=== PATIENT | male | born 1950 | race African-American/Black ===

== ENCOUNTER 2021-01-30 08:25 | Outpatient (CLI) | payer MEDICARE, MEDICAID | END 2021-01-30 08:26 | disposition home or self-care (01) | LOC: CSHWCC 08:25 | PROVIDERS: ATTEND Nurse Practitioner Family | DX: L89.314 Pressure ulcer of right buttock, stage 4 (principal); L89.011 Pressure ulcer of right elbow, stage 1; L89.626 Pressure-induced deep tissue damage of left heel; L89.896 Pressure-induced deep tissue damage of other site; I87.313 Chronic venous hypertension (idiopathic) with ulcer of bilateral lower extremity; I87.2 Venous insufficiency (chronic) (peripheral); E11.622 Type 2 diabetes mellitus with other skin ulcer; L97.312 Non-pressure chronic ulcer of right ankle with fat layer exposed; L97.812 Non-pressure chronic ulcer of other part of right lower leg with fat layer exposed; L97.822 Non-pressure chronic ulcer of other part of left lower leg with fat layer exposed; S91.309D Unspecified open wound, unspecified foot, subsequent encounter; I69.951 Hemiplegia and hemiparesis following unspecified cerebrovascular disease affecting right dominant side; I89.0 Lymphedema, not elsewhere classified; L03.115 Cellulitis of right lower limb; R60.0 Localized edema; I12.9 Hypertensive chronic kidney disease with stage 1 through stage 4 chronic kidney disease, or unspecified chronic kidney disease; N18.9 Chronic kidney disease, unspecified; B96.5 Pseudomonas (aeruginosa) (mallei) (pseudomallei) as the cause of diseases classified elsewhere; Z74.01 Bed confinement status ==

== ENCOUNTER 2021-07-30 09:24 | Outpatient (CLI) | payer MEDICARE, MEDICAID | END 2021-07-30 09:25 | disposition home or self-care (01) | LOC: CSHWCC 09:24 | PROVIDERS: ATTEND Nurse Practitioner Family | DX: I87.313 Chronic venous hypertension (idiopathic) with ulcer of bilateral lower extremity (principal); I87.2 Venous insufficiency (chronic) (peripheral); E11.622 Type 2 diabetes mellitus with other skin ulcer; L97.312 Non-pressure chronic ulcer of right ankle with fat layer exposed; L97.812 Non-pressure chronic ulcer of other part of right lower leg with fat layer exposed; L97.222 Non-pressure chronic ulcer of left calf with fat layer exposed; L03.115 Cellulitis of right lower limb; I89.0 Lymphedema, not elsewhere classified; R60.0 Localized edema; I69.951 Hemiplegia and hemiparesis following unspecified cerebrovascular disease affecting right dominant side; E11.22 Type 2 diabetes mellitus with diabetic chronic kidney disease; I12.9 Hypertensive chronic kidney disease with stage 1 through stage 4 chronic kidney disease, or unspecified chronic kidney disease; N18.9 Chronic kidney disease, unspecified; B96.5 Pseudomonas (aeruginosa) (mallei) (pseudomallei) as the cause of diseases classified elsewhere | CPT/HCPCS: 97139; G0463; 99213 ==

== ENCOUNTER 2021-09-03 09:00 | Outpatient (CLI) | payer OTHER | END 2021-09-03 09:01 | disposition home or self-care (01) | LOC: CSHWCC 09:00 | PROVIDERS: ATTEND Nurse Practitioner Family | DX: L89.314 Pressure ulcer of right buttock, stage 4 (principal) | CPT/HCPCS: 97139; G0463; 99212 ==

== ENCOUNTER 2021-09-24 09:32 | Outpatient (CLI) | payer MEDICARE, MEDICAID | END 2021-09-24 09:33 | disposition home or self-care (01) | LOC: CSHWCC 09:32 | PROVIDERS: ATTEND Nurse Practitioner Family | DX: L89.314 Pressure ulcer of right buttock, stage 4 (principal) | CPT/HCPCS: 99213; G0463 ==

== ENCOUNTER 2021-10-15 10:01 | Outpatient (CLI) | payer MEDICARE, MEDICAID | END 2021-10-15 10:02 | disposition home or self-care (01) | LOC: CSHWCC 10:01 | PROVIDERS: ATTEND Nurse Practitioner Family | DX: L89.314 Pressure ulcer of right buttock, stage 4 (principal) | CPT/HCPCS: 99212; G0463 ==

== ENCOUNTER 2021-10-29 09:51 | Outpatient (CLI) | payer MEDICARE, MEDICAID | END 2021-10-29 09:52 | disposition home or self-care (01) | LOC: CSHWCC 09:51 | PROVIDERS: ATTEND Nurse Practitioner Family | DX: L89.314 Pressure ulcer of right buttock, stage 4 (principal) | CPT/HCPCS: 97139; G0463; 99212 ==

== ENCOUNTER 2021-11-19 09:09 | Outpatient (CLI) | payer MEDICARE, MEDICAID | END 2021-11-19 09:10 | disposition home or self-care (01) | LOC: CSHWCC 09:09 | PROVIDERS: ATTEND Nurse Practitioner Family | DX: L89.314 Pressure ulcer of right buttock, stage 4 (principal) | CPT/HCPCS: 97597; 99212; G0463 ==

== ENCOUNTER 2021-12-03 14:01 | Outpatient (CLI) | payer MEDICARE, MEDICAID | END 2021-12-03 14:02 | disposition home or self-care (01) | LOC: CSHWCC 14:01 | PROVIDERS: ATTEND Preventive Medicine Undersea and Hyperbaric Medicine | DX: L89.314 Pressure ulcer of right buttock, stage 4 (principal); E11.621 Type 2 diabetes mellitus with foot ulcer; L97.422 Non-pressure chronic ulcer of left heel and midfoot with fat layer exposed | CPT/HCPCS: 99212; G0463 ==

== ENCOUNTER 2021-12-24 13:45 | Outpatient (CLI) | payer OTHER, MEDICAID | END 2021-12-24 13:46 | disposition home or self-care (01) | LOC: CSHWCC 13:45 | PROVIDERS: ATTEND Preventive Medicine Undersea and Hyperbaric Medicine | DX: L89.314 Pressure ulcer of right buttock, stage 4 (principal) | CPT/HCPCS: 82962; 97139; G0463; 36416; 99213 ==

== ENCOUNTER 2022-01-14 10:47 | Outpatient (CLI) | payer MEDICARE, MEDICAID | END 2022-01-14 10:48 | disposition home or self-care (01) | LOC: CSHWCC 10:47 | PROVIDERS: ATTEND Preventive Medicine Undersea and Hyperbaric Medicine | DX: L89.314 Pressure ulcer of right buttock, stage 4 (principal) | CPT/HCPCS: 97139; G0463; 99213 ==

== ENCOUNTER 2022-02-25 09:41 | Outpatient (CLI) | payer MEDICARE, MEDICAID | END 2022-02-25 09:42 | disposition home or self-care (01) | LOC: CSHWCC 09:41 | PROVIDERS: ATTEND Nurse Practitioner Family | DX: L89.314 Pressure ulcer of right buttock, stage 4 (principal) ==

== ENCOUNTER 2022-03-25 09:45 | Outpatient (CLI) | payer MEDICARE, MEDICAID | END 2022-03-25 09:46 | disposition home or self-care (01) | LOC: CSHWCC 09:45 | PROVIDERS: ATTEND Nurse Practitioner Family | DX: L89.313 Pressure ulcer of right buttock, stage 3 (principal) ==

== ENCOUNTER 2022-11-25 10:27 | Outpatient (CLI) | payer MEDICARE, MEDICAID | END 2022-11-25 10:28 | disposition home or self-care (01) | LOC: CSHWCC 10:27 | PROVIDERS: ATTEND Nurse Practitioner Family | DX: E11.621 Type 2 diabetes mellitus with foot ulcer (principal); L97.522 Non-pressure chronic ulcer of other part of left foot with fat layer exposed | CPT/HCPCS: 97139; G0463; 99212 ==